=== PATIENT | female | born 1970 | race American Indian/Alaskan Native ===

== ENCOUNTER 2016-08-18 23:00 | Emergency (ER) | payer MEDICARE ==
[2016-08-18 23:59] LABS: Eosinophils % (Auto) 0.3 % (0.0-4.3); Hemoglobin 12.6 gm/dl (10.1-14.3); Mean Corpuscular HGB Conc 32 % (30-34); Mean Corpuscular Hemoglobin 29 pg (28-32); Mean Corpuscular Volume 89 fl (79-97); Platelet Count 341 K/mm3 (140-440); Red Blood Count 4.38 M/mm3 (3.65-5.03); Red Cell Distribution Width 15.4 % (13.2-15.2); White Blood Count 10.6 K/mm3 (4.5-11.0)
[2016-08-19 00:18] LABS: Anion Gap 22 mmol/L; Blood Urea Nitrogen 20 mg/dL (7-17); Calcium 9.2 mg/dL (8.4-10.2); Carbon Dioxide 22 mmol/L (22-30); Chloride 86.6 mmol/L (98-107); Potassium 3.6 mmol/L (3.6-5.0); Sodium 127 mmol/L (137-145)
[2016-08-19 00:21] LABS: Glucose 543 mg/dL (65-100)
[2016-08-19] MEDS ORDERED: NACL 0.9% 1000 ML 1,000 ML IV ONE ×2 (02:31)
--- NOTE | 2016-08-19 02:32 | Emergency Department Report ---
ED General Adult HPI - General Chief complaint: Hyperglycemia Stated complaint: STEROID DIABEATES HIGH Time Seen by Provider: 08/19/16 02:30 Source: patient, old records reviewed Mode of arrival: Ambulatory Limitations: No Limitations - History of Present Illness Initial comments: This is a 45-year-old female. She is previously unknown to me. She has a past medical history of hidradenitis suppurativa. She has been on chronic steroid therapy for the past month. She is sent to the ER by her descriptive catalog librarian for evaluation of hyperglycemia, polydipsia, polyuria. She has no fevers or chills. She has no chest pain or shortness of breath. She has chronic left- sided axillary pain consistent with her chronic hidradenitis. She reports that she is not . She has no dysuria, or painful urination. She's been on steroids for approximately 4 weeks, and her descriptive catalog librarian is tapering her currently. -: Gradual Severity scale (0 -10): 3 Consistency: constant Improves with: none Worsens with: medication Associated Symptoms: denies: confusion, chest pain, cough, diaphoresis, fever/ chills, headaches, loss of appetite, malaise, nausea/vomiting, rash, seizure, shortness of breath, syncope, weakness - Related Data Home Medications Medication Instructions Recorded Confirmed Last Taken Gildess 1 mg-20 Mcg Tablet 1 tab PO DAILY 11/17/14 11/09/15 04/21/15 08:00 Previous Rx's Medication Instructions Recorded Last Taken Type glipiZIDE [Glucotrol] 5 mg PO QAM #30 tablet 05/23/15 Unknown Rx EPINEPHrine [Epipen 2-Edu] 0.3 mg IJ ONCE #2 auto.injct 11/09/15 Unknown Rx predniSONE [Deltasone] 40 mg PO QDAY #10 tab 11/09/15 Unknown Rx Ibuprofen [Motrin] 600 mg PO Q8H PRN #25 tablet 04/06/16 Unknown Rx Acetaminophen/Codeine [Tylenol #3] 1 tab PO Q6H PRN #15 tab 08/02/16 Unknown Rx Clindamycin [Clindamycin CAP] 300 mg PO Q8H #30 cap 08/02/16 Unknown Rx Allergies Allergy/AdvReac Type Severity Reaction Status Date / Time sulfamethoxazole Allergy Hives Verified 09/16/15 00:54 [From Bactrim] trimethoprim [From Bactrim] Allergy Hives Verified 09/16/15 00:54 ED Review of Systems ROS: Stated complaint: STEROID DIABEATES HIGH Other details as noted in HPI Constitutional: denies: fever, malaise Eyes: denies: vision change ENT: denies: epistaxis Respiratory: denies: cough Cardiovascular: denies: chest pain Endocrine: increased hunger, increased urine Gastrointestinal: denies: nausea, vomiting Genitourinary: denies: dysuria Musculoskeletal: myalgia Skin: lesions Neurological: denies: headache, weakness ED Past Medical Hx - Past Medical History Hx Diabetes: Yes (STEROID INDUCED) Hx Arthritis: Yes (Inflammatory) Additional medical history: hidradenitis, depression, Arthritis, "eye arthritis " - Surgical History Additional Surgical History: skin grafts, Tonsilectomy - Social History Smoking Status: Never Smoker Substance Use Type: None - Medications Home Medications: Home Medications Medication Instructions Recorded Confirmed Last Taken Type Gildess 1 mg-20 Mcg Tablet 1 tab PO DAILY 11/17/14 11/09/15 04/21/15 08:00 History glipiZIDE [Glucotrol] 5 mg PO QAM #30 tablet 05/23/15 11/09/15 Unknown Rx EPINEPHrine [Epipen 2-Edu] 0.3 mg IJ ONCE #2 auto.injct 11/09/15 Unknown Rx predniSONE [Deltasone] 40 mg PO QDAY #10 tab 11/09/15 Unknown Rx Ibuprofen [Motrin] 600 mg PO Q8H PRN #25 tablet 04/06/16 Unknown Rx Acetaminophen/Codeine [Tylenol #3] 1 tab PO Q6H PRN #15 tab 08/02/16 Unknown Rx Clindamycin [Clindamycin CAP] 300 mg PO Q8H #30 cap 08/02/16 Unknown Rx ED Physical Exam - General Limitations: No Limitations General appearance: alert, in no apparent distress - Head Head exam: Present: atraumatic, normocephalic - Eye Eye exam: Present: normal appearance, EOMI. Absent: nystagmus - ENT ENT exam: Present: normal exam, normal orophraynx, mucous membranes moist - Neck Neck exam: Present: normal inspection, full ROM. Absent: tenderness, meningismus - Respiratory Respiratory exam: Present: normal lung sounds bilaterally. Absent: respiratory distress, wheezes, rales, rhonchi, stridor, decreased breath sounds - Cardiovascular Cardiovascular Exam: Present: regular rate, normal rhythm, normal heart sounds. Absent: bradycardia, tachycardia, irregular rhythm, systolic murmur, diastolic murmur, rubs, gallop - GI/Abdominal GI/Abdominal exam: Present: soft, normal bowel sounds. Absent: distended, tenderness, guarding, rebound, rigid, pulsatile mass - Extremities Exam Extremities exam: Present: full ROM, normal capillary refill, other (chronic lesions noted in the left axilla, no acute redness, pus, streaking or cellulitis.). Absent: pedal edema, joint swelling, calf tenderness - Back Exam Back exam: Present: normal inspection, full ROM. Absent: tenderness, CVA tenderness (R), CVA tenderness (L), muscle spasm, paraspinal tenderness, vertebral tenderness - Neurological Exam Neurological exam: Present: alert, oriented X3, normal gait, other (Extraocular movements intact. Tongue midline. No facial droop. Facial sensation intact to light touch in the V1, V2, V3 distribution bilaterally. 5 and 5 strength in 4 extremities.. Sensation is intact to light touch in 4 extremities.). Absent : motor sensory deficit - Psychiatric Psychiatric exam: Present: normal affect, normal mood - Skin Skin exam: Present: warm, dry, intact, normal color. Absent: rash ED Course Vital Signs 08/18/16 23:22 Temperature 98.3 F Pulse Rate 88 Respiratory 18 Rate Blood Pressure 133/102 Blood Pressure 133/102 [Right] O2 Sat by Pulse 98 Oximetry - Reevaluation(s) Reevaluation #1: 08/19/16 04:17 Differential diagnosis: Steroid-induced hyperglycemia, diabetic ketoacidosis, hyperosmolar state, hyperglycemic state, chronic hidradenitis, pseudohyponatremia Assessment and plan: 45-year-old female with probable steroid-induced hyperglycemia. Also has a component of mild pseudohyponatremia. Has chronic left-sided axillary pain. Laboratory studies reviewed, patient does not meet criteria for diabetic ketoacidosis. She was given IV fluids, IV insulin, IV pain medication. Her fingerstick decreased nicely, she is resting comfortably, listening to music on her cellular phone and headphones. She does not require admission at this time. She is instructed to follow-up with her outpatient descriptive catalog librarian and primary care doctor for further management of her hidradenitis and chronic steroid therapy. She reports that her descriptive catalog librarian has her on a steroid taper currently, therefore I will defer to her descriptive catalog librarian's preference for her further outpatient management. ED Medical Decision Making - Lab Data Result diagrams: 08/18/16 23:43 08/18/16 23:43 Vital Signs 08/18/16 23:22 Temperature 98.3 F Pulse Rate 88 Respiratory 18 Rate Blood Pressure 133/102 Blood Pressure 133/102 [Right] O2 Sat by Pulse 98 Oximetry Lab Results 08/18/16 08/18/16 08/18/16 Range/Units 23:14 23:43 23:43 WBC 10.6 (4.5-11.0) K/mm3 RBC 4.38 (3.65-5.03) M/mm3 Hgb 12.6 (10.1-14.3) gm/dl Hct 39.0 (30.3-42.9) % MCV 89 (79-97) fl MCH 29 (28-32) pg MCHC 32 (30-34) % RDW 15.4 H (13.2-15.2) % Plt Count 341 (140-440) K/mm3 Lymph % (Auto) 37.1 H (13.4-35.0) % Hanson % (Auto) 7.1 (0.0-7.3) % Eos % (Auto) 0.3 (0.0-4.3) % Baso % (Auto) 1.0 (0.0-1.8) % Lymph # 3.9 (1.2-5.4) K/mm3 Hanson # 0.8 (0.0-0.8) K/mm3 Eos # 0.0 (0.0-0.4) K/mm3 Baso # 0.1 (0.0-0.1) K/mm3 Seg Neutrophils % 54.5 (40.0-70.0) % Seg Neutrophils # 5.7 (1.8-7.7) K/mm3 VBG pH (7.320-7.420) Sodium 127 L (137-145) mmol/L Potassium 3.6 (3.6-5.0) mmol/L Chloride 86.6 L (98-107) mmol/L Carbon Dioxide 22 (22-30) mmol/L Anion Gap 22 mmol/L BUN 20 H (7-17) mg/dL Creatinine 0.8 (0.7-1.2) mg/dL Estimated GFR > 60 ml/min BUN/Creatinine Ratio 25.00 % Glucose 543 H* (65-100) mg/dL POC Glucose 499 H (70-105) Calcium 9.2 (8.4-10.2) mg/dL Urine Bilirubin (Negative) Urine RBC (Auto) (0.0-6.0) /HPF U Epithel Cells (Auto) (0-13.0) /HPF Ketones (-0.28) mmol/L 08/18/16 08/19/16 08/19/16 Range/Units 23:43 03:30 04:10 WBC (4.5-11.0) K/mm3 RBC (3.65-5.03) M/mm3 Hgb (10.1-14.3) gm/dl Hct (30.3-42.9) % MCV (79-97) fl MCH (28-32) pg MCHC (30-34) % RDW (13.2-15.2) % Plt Count (140-440) K/mm3 Lymph % (Auto) (13.4-35.0) % Hanson % (Auto) (0.0-7.3) % Eos % (Auto) (0.0-4.3) % Baso % (Auto) (0.0-1.8) % Lymph # (1.2-5.4) K/mm3 Hanson # (0.0-0.8) K/mm3 Eos # (0.0-0.4) K/mm3 Baso # (0.0-0.1) K/mm3 Seg Neutrophils % (40.0-70.0) % Seg Neutrophils # (1.8-7.7) K/mm3 VBG pH 7.471 H (7.320-7.420) Sodium (137-145) mmol/L Potassium (3.6-5.0) mmol/L Chloride (98-107) mmol/L Carbon Dioxide (22-30) mmol/L Anion Gap mmol/L BUN (7-17) mg/dL Creatinine (0.7-1.2) mg/dL Estimated GFR ml/min BUN/Creatinine Ratio % Glucose (65-100) mg/dL POC Glucose 255 H (70-105) Calcium (8.4-10.2) mg/dL Urine Bilirubin Neg (Negative) Urine RBC (Auto) 3.0 (0.0-6.0) /HPF U Epithel Cells (Auto) 2.0 (0-13.0) /HPF Ketones (-0.28) mmol/L Critical care attestation.: If time is entered above; I have spent that time in minutes in the direct care of this critically ill patient, excluding procedure time. ED Disposition Clinical Impression: Hyperglycemia Disposition: DISCHARGED TO HOME OR SELFCARE Is pt being admited?: No Does the pt Need Aspirin: No Condition: Stable Additional Instructions: Into new current outpatient medications. Follow up with your descriptive catalog librarian specialist or primary care doctor within the next week for further evaluation and management of the hidradenitis and hyperglycemia/borderline diabetes. Return to the ER right away with new pain, worsened pain, migration of pain, fevers or chills, nausea or vomiting, inability to tolerate liquid feeds. Referrals: PRIMARY CARE, [Primary Care Provider] - 3-5 Days
[2016-08-19] MEDS ORDERED: TORADOL IV ONE (03:13)
[2016-08-19 04:13] LABS: Bilirubin,Urine NEG (Negative); Blood,Urine SM (Negative); Ketones,Urine NEG (Negative); Leukocyte Esterase,Urine NEG (Negative); Nitrite,Urine NEG (Negative); Protein,Urine <15 mg/dL mg/dL (Negative); Urobilinogen,Urine < 2.0 mg/dL (<2.0)
[2016-08-19 04:20] VITALS: BP 109/66
[2016-08-24 07:41] LABS: B-Hydroxybutyrate 0.2 mmol/L (0.2 - 0.28)
== END 2016-08-19 04:34 | disposition home or self-care (01) ==
LOC: ED 23:00
DX: E11.65 Type 2 diabetes mellitus with hyperglycemia (principal); M19.90 Unspecified osteoarthritis, unspecified site; F32.9 Major depressive disorder, single episode, unspecified; Z88.2 Allergy status to sulfonamides; Z88.8 Allergy status to other drugs, medicaments and biological substances
CPT/HCPCS: 36415; 80048; 81001; 82010; 82805; 82962; 85025; 96361; 96374; 96375; 99284; J1885; J7030

== ENCOUNTER 2016-09-05 22:09 | Emergency (ER) | payer MEDICARE ==
[2016-09-06] MEDS ORDERED: TORADOL IM ONE (04:01)
--- NOTE | 2016-09-06 04:33 | Emergency Department Report ---
ED Recheck HPI - General Chief Complaint: Skin/Abscess/Foreign Body Stated Complaint: BOILS Time Seen by Provider: 09/06/16 03:27 Source: patient Mode of arrival: Ambulatory Limitations: No Limitations - History of Present Illness Initial Comments: 45-year-old female presents to emergency room with the chronic hidradenitis abscesses. Patient has hidradenitis for many years and currently under treatment by apprentice. Tonight she presents to emergency room requesting pain medicine shot. She denies any other complaints. Patient is seen here in the emergency room multiple times in the past with similar complaints. Complaint: medication refill request, other -: Gradual (years) Initial Visit For: abscess Returns Today for: request for prescription, other (requesting pain medicine shot) Symptoms Since Prior Visit: no new symptoms Context: ran out of medication Associated Symptoms: none - Related Data Home Medications Medication Instructions Recorded Confirmed Last Taken Gildess 1 mg-20 Mcg Tablet 1 tab PO DAILY 11/17/14 11/09/15 04/21/15 08:00 Previous Rx's Medication Instructions Recorded Last Taken Type glipiZIDE [Glucotrol] 5 mg PO QAM #30 tablet 05/23/15 Unknown Rx EPINEPHrine [Epipen 2-Edu] 0.3 mg IJ ONCE #2 auto.injct 11/09/15 Unknown Rx predniSONE [Deltasone] 40 mg PO QDAY #10 tab 11/09/15 Unknown Rx Ibuprofen [Motrin] 600 mg PO Q8H PRN #25 tablet 04/06/16 Unknown Rx Acetaminophen/Codeine [Tylenol #3] 1 tab PO Q6H PRN #15 tab 08/02/16 Unknown Rx Clindamycin [Clindamycin CAP] 300 mg PO Q8H #30 cap 08/02/16 Unknown Rx Clindamycin [Clindamycin CAP] 300 mg PO Q8H #30 cap 09/06/16 Unknown Rx Diclofenac Sodium 75 mg PO BID #20 tablet. 09/06/16 Unknown Rx Allergies Allergy/AdvReac Type Severity Reaction Status Date / Time sulfamethoxazole Allergy Hives Verified 09/16/15 00:54 [From Bactrim] trimethoprim [From Bactrim] Allergy Hives Verified 09/16/15 00:54 ED Review of Systems ROS: Stated complaint: BOILS Other details as noted in HPI Comment: All other systems reviewed and negative Constitutional: denies: chills, fever Eyes: denies: eye pain, eye discharge, vision change ENT: denies: ear pain, throat pain Respiratory: denies: cough, shortness of breath, wheezing Cardiovascular: denies: chest pain, palpitations Endocrine: no symptoms reported Gastrointestinal: denies: abdominal pain, nausea, diarrhea Genitourinary: denies: urgency, dysuria, discharge Musculoskeletal: denies: back pain, joint swelling, arthralgia Skin: as per HPI, rash, lesions Neurological: denies: headache, weakness, paresthesias Psychiatric: denies: anxiety, depression Hematological/Lymphatic: denies: easy bleeding, easy bruising ED Past Medical Hx - Past Medical History Previous Medical History?: Yes Hx Diabetes: Yes (STEROID INDUCED) Hx Arthritis: Yes (Inflammatory) Additional medical history: hidradenitis, depression, Arthritis, "eye arthritis " - Surgical History Past Surgical History?: Yes Additional Surgical History: skin grafts, Tonsilectomy - Social History Smoking Status: Never Smoker Substance Use Type: None - Medications Home Medications: Home Medications Medication Instructions Recorded Confirmed Last Taken Type Gildess 1 mg-20 Mcg Tablet 1 tab PO DAILY 11/17/14 11/09/15 04/21/15 08:00 History glipiZIDE [Glucotrol] 5 mg PO QAM #30 tablet 05/23/15 11/09/15 Unknown Rx EPINEPHrine [Epipen 2-Edu] 0.3 mg IJ ONCE #2 auto.injct 11/09/15 Unknown Rx predniSONE [Deltasone] 40 mg PO QDAY #10 tab 11/09/15 Unknown Rx Ibuprofen [Motrin] 600 mg PO Q8H PRN #25 tablet 04/06/16 Unknown Rx Acetaminophen/Codeine [Tylenol #3] 1 tab PO Q6H PRN #15 tab 08/02/16 Unknown Rx Clindamycin [Clindamycin CAP] 300 mg PO Q8H #30 cap 08/02/16 Unknown Rx Clindamycin [Clindamycin CAP] 300 mg PO Q8H #30 cap 09/06/16 Unknown Rx Diclofenac Sodium 75 mg PO BID #20 tablet. 09/06/16 Unknown Rx ED Physical Exam - General Limitations: No Limitations General appearance: alert, in no apparent distress - Head Head exam: Present: atraumatic, normocephalic - Eye Eye exam: Present: normal appearance - ENT ENT exam: Present: mucous membranes moist - Neck Neck exam: Present: normal inspection - Respiratory Respiratory exam: Present: normal lung sounds bilaterally. Absent: respiratory distress - Cardiovascular Cardiovascular Exam: Present: regular rate, normal rhythm. Absent: systolic murmur, diastolic murmur, rubs, gallop - GI/Abdominal GI/Abdominal exam: Present: soft, normal bowel sounds - Extremities Exam Extremities exam: Present: normal inspection - Back Exam Back exam: Present: normal inspection, full ROM. Absent: tenderness - Neurological Exam Neurological exam: Present: alert, oriented X3, CN II-XII intact, normal gait, motor sensory deficit, reflexes normal - Psychiatric Psychiatric exam: Present: normal affect, normal mood - Skin Skin exam: Present: warm, dry, intact, normal color, rash (multiple abscess to axilla, perianal and perineal area as per patient.) ED Course Vital Signs 09/05/16 22:31 Temperature 98.2 F Pulse Rate 85 Respiratory 18 Rate Blood Pressure 128/82 O2 Sat by Pulse 96 Oximetry Critical care attestation.: If time is entered above; I have spent that time in minutes in the direct care of this critically ill patient, excluding procedure time. ED Disposition Clinical Impression: Chronic pain disorder, Hidradenitis axillaris Disposition: DISCHARGED TO HOME OR SELFCARE Is pt being admited?: No Does the pt Need Aspirin: No Condition: Good Instructions: Wound Infection (ED), Chronic Wound Care (ED) Prescriptions: Clindamycin [Clindamycin CAP] 300 mg PO Q8H #30 cap Diclofenac Sodium 75 mg PO BID #20 tablet. Referrals: PRIMARY CARE, [Primary Care Provider] - 3-5 Days
[2016-09-06 05:13] VITALS: BP 126/84
== END 2016-09-06 05:12 | disposition home or self-care (01) ==
LOC: ED 22:09
DX: L73.2 Hidradenitis suppurativa (principal); G89.29 Other chronic pain; E11.9 Type 2 diabetes mellitus without complications; M19.90 Unspecified osteoarthritis, unspecified site; F32.9 Major depressive disorder, single episode, unspecified; Z90.89 Acquired absence of other organs; Z88.8 Allergy status to other drugs, medicaments and biological substances
CPT/HCPCS: 96372; 99282; J1885

== ENCOUNTER 2017-03-11 16:44 | Emergency (ER) | payer MEDICARE ==
--- NOTE | 2017-03-12 01:14 | Emergency Department Report ---
ED General Adult HPI - General Chief complaint: Pain General Stated complaint: CHORNIC PAIN Time Seen by Provider: 03/12/17 00:42 Source: patient Mode of arrival: Ambulatory Limitations: No Limitations - History of Present Illness Initial comments: Patient is a 46-year-old female past medical history of hydradenitis suppritiva who presents with compliant of "I want my left armpit washed"patient was seen at the [facility] yesterday and she states that she may get any pain medication for hydradenitis. Patient has chronic hydradenitis and has been seen by a power systems engineer for it. She was previously given Remicade but her insurance changed so she wasn't able to fill her Remicade prescription. Patient states that she wants her armpit washed. Patient states that her pain in the axilla is 5 out 10 and aching type pain describes sent raising her arm makes it worse and nothing makes it better. Patient denies having any other symptoms. Patient denies any suicidal or homicidal ideation. Severity scale (0 -10): 10 - Related Data Home Medications Medication Instructions Recorded Confirmed Last Taken Gildess 1 mg-20 Mcg Tablet 1 tab PO DAILY 11/17/14 11/09/15 04/21/15 08:00 Previous Rx's Medication Instructions Recorded Last Taken Type glipiZIDE [Glucotrol] 5 mg PO QAM #30 tablet 05/23/15 Unknown Rx EPINEPHrine [Epipen 2-Edu] 0.3 mg IJ ONCE #2 auto.injct 11/09/15 Unknown Rx predniSONE [Deltasone] 40 mg PO QDAY #10 tab 11/09/15 Unknown Rx Ibuprofen [Motrin] 600 mg PO Q8H PRN #25 tablet 04/06/16 Unknown Rx Acetaminophen/Codeine [Tylenol #3] 1 tab PO Q6H PRN #15 tab 08/02/16 Unknown Rx Clindamycin [Clindamycin CAP] 300 mg PO Q8H #30 cap 08/02/16 Unknown Rx Clindamycin [Clindamycin CAP] 300 mg PO Q8H #30 cap 09/06/16 Unknown Rx Diclofenac Sodium 75 mg PO BID #20 tablet. 09/06/16 Unknown Rx Allergies Allergy/AdvReac Type Severity Reaction Status Date / Time sulfamethoxazole Allergy Hives Verified 09/16/15 00:54 [From Bactrim] trimethoprim [From Bactrim] Allergy Hives Verified 09/16/15 00:54 ED Review of Systems ROS: Stated complaint: CHORNIC PAIN Other details as noted in HPI Constitutional: denies: chills, fever Eyes: denies: eye pain, eye discharge, vision change ENT: denies: ear pain, throat pain Respiratory: denies: cough, shortness of breath, wheezing Cardiovascular: denies: chest pain, palpitations Endocrine: no symptoms reported Gastrointestinal: denies: abdominal pain, nausea, diarrhea Genitourinary: denies: urgency, dysuria, discharge Musculoskeletal: denies: back pain, joint swelling, arthralgia Skin: as per HPI. denies: rash, lesions Neurological: denies: headache, weakness, paresthesias Psychiatric: denies: anxiety, depression Hematological/Lymphatic: denies: easy bleeding, easy bruising ED Past Medical Hx - Past Medical History Previous Medical History?: Yes Hx Diabetes: Yes (STEROID INDUCED) Hx Arthritis: Yes (Inflammatory) Additional medical history: hidradenitis, depression, Arthritis, "eye arthritis " - Surgical History Past Surgical History?: Yes Additional Surgical History: skin grafts, Tonsilectomy - Social History Smoking Status: Never Smoker Substance Use Type: Prescribed - Medications Home Medications: Home Medications Medication Instructions Recorded Confirmed Last Taken Type Gildess 1 mg-20 Mcg Tablet 1 tab PO DAILY 11/17/14 11/09/15 04/21/15 08:00 History glipiZIDE [Glucotrol] 5 mg PO QAM #30 tablet 05/23/15 11/09/15 Unknown Rx EPINEPHrine [Epipen 2-Edu] 0.3 mg IJ ONCE #2 auto.injct 11/09/15 Unknown Rx predniSONE [Deltasone] 40 mg PO QDAY #10 tab 11/09/15 Unknown Rx Ibuprofen [Motrin] 600 mg PO Q8H PRN #25 tablet 04/06/16 Unknown Rx Acetaminophen/Codeine [Tylenol #3] 1 tab PO Q6H PRN #15 tab 08/02/16 Unknown Rx Clindamycin [Clindamycin CAP] 300 mg PO Q8H #30 cap 08/02/16 Unknown Rx Clindamycin [Clindamycin CAP] 300 mg PO Q8H #30 cap 09/06/16 Unknown Rx Diclofenac Sodium 75 mg PO BID #20 tablet. 09/06/16 Unknown Rx ED Physical Exam - General Limitations: No Limitations General appearance: alert, in no apparent distress - Head Head exam: Present: atraumatic, normocephalic - Eye Eye exam: Present: normal appearance - ENT ENT exam: Present: mucous membranes moist - Neck Neck exam: Present: normal inspection - Respiratory Respiratory exam: Present: normal lung sounds bilaterally. Absent: respiratory distress - Cardiovascular Cardiovascular Exam: Present: regular rate, normal rhythm. Absent: systolic murmur, diastolic murmur, rubs, gallop - GI/Abdominal GI/Abdominal exam: Present: soft, normal bowel sounds - Extremities Exam Extremities exam: Present: normal inspection - Back Exam Back exam: Present: normal inspection - Neurological Exam Neurological exam: Present: alert, oriented X3 - Psychiatric Psychiatric exam: Present: normal affect, normal mood - Skin Skin exam: Present: other (chronic hydradenitis left axilla pus draining from her wound no cellulitis no). Absent: rash ED Course Vital Signs 03/11/17 03/11/17 17:16 21:35 Temperature 98.5 F 98.4 F Pulse Rate 119 H 91 H Respiratory 22 18 Rate Blood Pressure 148/95 144/94 O2 Sat by Pulse 100 99 Oximetry ED Medical Decision Making - Medical Decision Making Chief Medical diagnosis: Chronic hydradenitis supprativa Differential medical diagnosis: Drug-seeking behavior, malingering I will give the patient oral Tylenol, oral Motrin, oral tramadol and oral gabapentin for her chronic pain. I Will not give her any Caroline or any Percocet Patient is requesting her wounds be washed discussed the patient will not be getting any narcotic pain medication the ER. Patient became upset and states that she just wants a mirror to look at her arm.. I'll attempt to find a mirror for patient to look at her wound. Discussed the patient will need to go with her primary care provider. I'll send patient home. Critical care attestation.: If time is entered above; I have spent that time in minutes in the direct care of this critically ill patient, excluding procedure time. ED Disposition Clinical Impression: Hidradenitis suppurativa Pain in axilla Qualifiers: Laterality: left Qualified Code(s): M79.622 - Pain in left upper arm Disposition: - TO HOME OR SELFCARE Is pt being admited?: No Does the pt Need Aspirin: No Condition: Stable Instructions: Chronic Pain (ED) Referrals: PRIMARY CARE,MD [Primary Care Provider] - 3-5 Days
[2017-03-12] MEDS: MOTRIN PO ONE (03:33)
[2017-03-12] MEDS: TYLENOL PO ONE (03:34)
[2017-03-12] MEDS: ULTRAM PO ONE (03:34)
[2017-03-12] MEDS: NEURONTIN PO ONE (03:35)
[2017-03-12 04:52] VITALS: BP 113/75
== END 2017-03-12 04:00 | disposition home or self-care (01) ==
LOC: ED 16:44
DX: L73.2 Hidradenitis suppurativa (principal); M79.621 Pain in right upper arm; E11.9 Type 2 diabetes mellitus without complications; M19.90 Unspecified osteoarthritis, unspecified site; Z88.2 Allergy status to sulfonamides
CPT/HCPCS: 99282

== ENCOUNTER 2018-12-04 10:09 | Outpatient (CLI) | payer MEDICARE ==
--- NOTE | 2018-12-04 13:44 | Mammography Report ---
BILATERAL DIGITAL SCREENING MAMMOGRAM WITH CAD INDICATION: Routine screening mammography. TECHNIQUE: Digital bilateral 2D mammography was obtained in the craniocaudal and mediolateral obliq ue projections. This examination was interpreted with the benefit of Computer-Aided Detection analysi s. COMPARISON: 02/07/2016 FINDINGS: Breast Density: The breasts are heterogeneously dense, which may obscure small masses. There is no evidence of mass, suspicious calcifications or architectural distortion in either breast . IMPRESSION: No mammographic evidence of malignancy. BI-RADS Category 1: Negative. No mammographic evidence of malignancy. Recommend routine screening m ammography in one year. A "normal" or negative report should not discourage follow up or biopsy of a clinically significant f inding. A written summary of these findings will be mailed to the patient. The patient will be entered into a mammography reporting system which will generate a reminder letter for the patient's next appointmen t at the appropriate interval. The [employer] recommends yearly mammograms starting at age 40 and continuing as l mukund as a woman is in good health. Breast MRI is recommended for women with an approximate 20-25% or greater lifetime risk of breast cancer, including women with a strong family history of breast or ova jovan cancer or who have been treated for Hodgkin's disease. Signer Name: Jaquan Mora MD Signed: 12/04/2018 1:39 PM Workstation Name: [id number]
== END 2018-12-04 10:10 | disposition home or self-care (01) ==
LOC: MAMMO 10:09
PROVIDERS: ATTEND Obstetrics & Gynecology
DX: Z12.31 Encounter for screening mammogram for malignant neoplasm of breast (principal)
CPT/HCPCS: 77067

== ENCOUNTER 2019-06-03 13:31 | Emergency (ER) | payer MEDICARE ==
--- NOTE | 2019-06-03 14:23 | Emergency Department Report ---
Blank Doc - Documentation Documentation: 48 Y/O FEMALE WITH NEW ONSET SEIZURES AND CURRENTLY BEING TREATED FOR HIDRADIN ITIS C/O OF DIZZINESS, NAUSEA AND HYPOTENSION. NON PRODUCTIVE COUGH. SHE WAS AT HER INFECTIOUS DISEASE DOCTOR WHEN BP WAS DISCOVERED AND WAS ADVISED TO COME TO THE ED FOR FURTHER TREATMENT AND RECOMMENDATION. ON CLINDAMYCIN AND REMICADE FEELS THE WOUND IS IMPROVING. The patient was seen in triage for ABOVE Labs/imaging ordered to evaluate for a cause of this complaint. Vital signs reviewed, patient awake and alert in NAD.
--- NOTE | 2019-06-03 14:59 | XRay Report ---
CHEST 2 VIEWS INDICATION / CLINICAL INFORMATION: Weakness. COMPARISON: None available. FINDINGS: SUPPORT DEVICES: None. HEART / MEDIASTINUM: No significant abnormality. LUNGS / PLEURA: No significant pulmonary or pleural abnormality. No pneumothorax. ADDITIONAL FINDINGS: No significant additional findings. IMPRESSION: 1. No acute findings. Signer Name: Kalen Duvall MD Signed: 06/03/2019 2:55 PM Workstation Name: [id number]
[2019-06-03 16:01] LABS: Hematocrit 38.1 % (30.3-42.9); Hemoglobin 12.6 gm/dl (10.1-14.3); Mean Corpuscular HGB Conc 33 % (30-34); Mean Corpuscular Volume 88 fl (79-97); Platelet Count 204 K/mm3 (140-440); Red Blood Count 4.32 M/mm3 (3.65-5.03); Red Cell Distribution Width 15.7 % (13.2-15.2)
[2019-06-03 16:25] LABS: Alanine Aminotransferase 33 units/L (7-56); Albumin 3.7 g/dL (3.9-5); BUN/Creatinine Ratio 16; Blood Urea Nitrogen 18 mg/dL (7-17); Calcium 8.5 mg/dL (8.4-10.2); Hemolysis Index 7
[2019-06-03 18:10] LABS: Basophils % (Manual) 0 % (0.0-1.8); Eosinophils % (Manual) 0 % (0.0-4.3); Total Cells Counted 100
[2019-06-03 18:11] LABS: Anisocytosis Few; Platelet Estimate Consistent w Auto
[2019-06-03] MEDS ORDERED: SODIUM CHLORIDE 0.9% 1000 ML 1,000 ML IV ONE (18:19)
[2019-06-03] MEDS ORDERED: ONDANSETRON 4 MG/2 ML INJ IV ONE (18:19)
[2019-06-03] MEDS ORDERED: LORazepam 2 MG/ML VIAL IV ONE (18:56)
--- NOTE | 2019-06-03 18:57 | Emergency Department Report ---
HPI - General Chief Complaint: Weakness Time Seen by Provider: 06/03/19 14:19 - HPI HPI: 48-year-old female presents to the emergency department with the complaint of "I feel terrible." She was sent in here from the office of her infectious disease physician, Dr. live, for whom she sees regarding her hidradenitis. While she was there she had a low blood pressure and was sent in for further evaluation. The patient had some seizure-like activity back in August while at [place] and was placed on Keppra. She has been following with a neurologist, Dr. Julien, who has kept her on the Keppra. The patient says that she feels bad when she takes this medication and says that it causes her to feel like "my head is swimming." Patient also says that she has been having a 5 day history of a "stomach virus." She has been having some nausea, vomiting, diarrhea, chills and sweats. She has not taken anything for her symptoms prior to presentation. The patient's primary care physician is Dr. Kearns. No recent travel or sick contacts at home. ED Past Medical Hx - Past Medical History Previous Medical History?: Yes Hx Diabetes: Yes (STEROID INDUCED) Hx Arthritis: Yes (Inflammatory) Additional medical history: hidradenitis, depression, Arthritis, "eye arthritis" - Surgical History Past Surgical History?: Yes Additional Surgical History: skin grafts, Tonsilectomy - Social History Smoking Status: Never Smoker Substance Use Type: None - Medications Home Medications: Home Medications Medication Instructions Recorded Confirmed Last Taken Type Gildess 1 mg-20 Mcg Tablet 1 tab PO DAILY 11/17/14 11/09/15 04/21/15 08:00 History glipiZIDE [Glucotrol] 5 mg PO QAM #30 tablet 05/23/15 11/09/15 Unknown Rx EPINEPHrine [Epipen 2-Edu] 0.3 mg IJ ONCE #2 auto.injct 11/09/15 Unknown Rx predniSONE [Deltasone] 40 mg PO QDAY #10 tab 11/09/15 Unknown Rx Ibuprofen [Motrin] 600 mg PO Q8H PRN #25 tablet 04/06/16 Unknown Rx Acetaminophen/Codeine [Tylenol #3] 1 tab PO Q6H PRN #15 tab 08/02/16 Unknown Rx Clindamycin [Clindamycin CAP] 300 mg PO Q8H #30 cap 08/02/16 Unknown Rx Clindamycin [Clindamycin CAP] 300 mg PO Q8H #30 cap 09/06/16 Unknown Rx Diclofenac Sodium 75 mg PO BID #20 tablet. 09/06/16 Unknown Rx Metoclopramide [Reglan] 10 mg PO TID PRN #15 tab 06/04/19 Unknown Rx Ondansetron [Zofran Odt] 4 mg PO Q8HR PRN #15 tab.rapdis 06/04/19 Unknown Rx ED Review of Systems ROS: Stated complaint: LOW BLOOD PRESSURE Other details as noted in HPI Comment: All other systems reviewed and negative Constitutional: chills, diaphoresis Eyes: denies: eye pain, vision change ENT: denies: ear pain, throat pain Respiratory: denies: cough, shortness of breath Cardiovascular: denies: chest pain, palpitations Gastrointestinal: abdominal pain, nausea, vomiting, diarrhea Genitourinary: denies: dysuria, discharge Musculoskeletal: denies: back pain, arthralgia Skin: denies: rash, lesions Neurological: other (dizziness). denies: headache, numbness, paresthesias Physical Exam - Physical Exam Vital Signs: Vital Signs 06/03/19 06/03/19 06/03/19 14:20 18:05 18:07 Temperature 97.6 F Pulse Rate 68 62 Respiratory 16 16 Rate Blood Pressure 97/60 149/99 Blood Pressure 149/99 [Left] O2 Sat by Pulse 100 100 100 Oximetry 06/03/19 18:15 Temperature Pulse Rate Respiratory Rate Blood Pressure 139/83 Blood Pressure [Left] O2 Sat by Pulse 100 Oximetry Physical Exam: GENERAL: The patient is well-developed well-nourished. HEENT: Normocephalic. Atraumatic. Patient has moist mucous membranes. EYES: Extraocular motions are intact. NECK: Supple. Trachea is midline CHEST/LUNGS: Clear to auscultation. There is no respiratory distress noted. HEART/CARDIOVASCULAR: Regular. There is no tachycardia. ABDOMEN: Abdomen is soft. There is generalized mild tenderness to palpation with upper quadrants greater than lower quadrants. No guarding. Patient has normal bowel sounds. There is no abdominal distention. SKIN: Skin is warm and dry. NEURO: The patient is awake, alert, and oriented. The patient is cooperative. The patient has no focal neurologic deficits. Normal speech. MUSCULOSKELETAL: There is no tenderness or deformity. There is no limitation range of motion. There is no evidence of acute injury. ED Course Vital Signs 06/03/19 06/03/19 06/03/19 14:20 18:05 18:07 Temperature 97.6 F Pulse Rate 68 62 Respiratory 16 16 Rate Blood Pressure 97/60 149/99 Blood Pressure 149/99 [Left] O2 Sat by Pulse 100 100 100 Oximetry 06/03/19 18:15 Temperature Pulse Rate Respiratory Rate Blood Pressure 139/83 Blood Pressure [Left] O2 Sat by Pulse 100 Oximetry ED Medical Decision Making - Lab Data Result diagrams: 06/03/19 15:43 06/03/19 15:43 - EKG Data -: EKG Interpreted by Me EKG shows normal: sinus rhythm, axis, intervals, QRS complexes, ST-T waves (nonspecific T waves) Rate: normal - EKG Data When compared to previous EKG there are: previous EKG unavailable Interpretation: other (nonspecific T waves) - Radiology Data Radiology results: report reviewed, image reviewed interpreted by me: Chest x-ray does not show any pneumonia, pneumothorax, focal consolidation, pleural effusions, or any other acute process. Abdominal x-ray shows nonspecific nonobstructive bowel gas ULTRASOUND ABDOMEN, LIMITED (RIGHT UPPER QUADRANT), 03/03/2020 INDICATION: Right upper quadrant pain. COMPARISON: Abdominal radiograph, 06/03/2019 FINDINGS: Pancreas: Visualized portion shows no significant abnormality. Liver: The liver is markedly enlarged measuring 20 cm in greatest craniocaudal dimension. Gallbladder: The gallbladder appears normal without sludge or stones. Bile ducts: Common Bile Duct is normal in caliber measuring less than 2 mm Free fluid: None. Additional Findings: None. IMPRESSION: 1. Marked hepatomegaly. - Medical Decision Making This patient presents to the emergency department after she was found to have some hypotension at the office of her infectious disease physician. She's been having a 5 day history of some nausea, vomiting, abdominal discomfort that she believes is a "stomach virus." Patient's labs are mostly unremarkable except for some mild dehydration. A chest x-ray was done that does not show any acute process. Abdominal x-ray shows nonspecific nonobstructive bowel gas. An abdomi nal ultrasound shows hepatomegaly. Patient received some Zofran for nausea and some IV fluid resuscitation. She was reevaluated multiple times with multiple hours and says that she is feeling improved. She has been able to keep down some water and Gatorade while in the emergency department. For all these reasons the patient appears safe for discharge home at this time. She has good follow-up with Dr. Kearns. She'll be given a referral for gastroenterology regarding her issues with nausea and vomiting, and her nonspecific abdominal pains. She will return to the emergency Department with any worsening of her symptoms, inability to stay hydrated, or with any acute distress. - Differential Diagnosis food poisoning, gastroenteritis, colitis, cholelithiasis, cholecystitis Critical Care Time: No Critical care attestation.: If time is entered above; I have spent that time in minutes in the direct care of this critically ill patient, excluding procedure time. ED Disposition Clinical Impression: Dehydration, Hepatomegaly Nausea & vomiting Qualifiers: Vomiting type: unspecified Vomiting Intractability: non-intractable Qualified Code(s): R11.2 - Nausea with vomiting, unspecified Abdominal pain Qualifiers: Abdominal location: unspecified location Qualified Code(s): R10.9 - Unspecified abdominal pain Disposition: TO HOME OR SELFCARE Is pt being admited?: No Condition: Stable Instructions: Dehydration (ED), Acute Nausea and Vomiting (ED), Abdominal Pain (ED) Additional Instructions: Increase your oral rehydration. Please follow-up with your primary care physician in the next few days. I have given you a referral for a local gastroenterology group to follow up regarding your abdominal pains, nausea and vomiting. Return to the emergency Department with any worsening of your symptoms or any acute distress. Prescriptions: Metoclopramide [Reglan] 10 mg PO TID PRN #15 tab PRN Reason: Nausea Ondansetron [Zofran Odt] 4 mg PO Q8HR PRN #15 tab.rapdis PRN Reason: Nausea Referrals: TALIB KEARNS JR, MD [Primary Care Provider] - 3-5 Days [facility] [Provider Group] - 3-5 Days Time of Disposition: 00:31
--- NOTE | 2019-06-03 19:42 | XRay Report ---
FLAT AND UPRIGHT VIEWS OF THE ABDOMEN INDICATION: MAIN: Abd pain; pt c/o low blood pressure from infectious disease for Hidradenitis suppurativa, pt al so c/o dizziness, weakness d/t Keppra medication. BP 87/58.. COMPARISON: No relevant prior imaging study available. FINDINGS: There is mild gaseous distention of the colon. No dilated loops of small bowel are seen. No free air is identified. There are numerous phleboliths in the pelvis. IMPRESSION: 1. No radiographic evidence of acute abdomen. 2. Liver is enlarged. Signer Name: Bhavik Sutherland MD Signed: 06/03/2019 7:38 PM Workstation Name: [id number]
[2019-06-03 19:44] LABS: Bacteria,Urine 1+ /HPF (Negative); Bilirubin,Urine NEG (Negative); Blood,Urine LG (Negative); Color,Urine Yellow (Yellow); Hyaline Casts,Urine 1 /LPF; Mucus,Urine FEW /HPF; Urobilinogen,Urine < 2.0 mg/dL (<2.0)
--- NOTE | 2019-06-04 00:09 | Ultrasound Report ---
ULTRASOUND ABDOMEN, LIMITED (RIGHT UPPER QUADRANT), 03/03/2020 INDICATION: Right upper quadrant pain. COMPARISON: Abdominal radiograph, 06/03/2019 FINDINGS: Pancreas: Visualized portion shows no significant abnormality. Liver: The liver is markedly enlarged measuring 20 cm in greatest craniocaudal dimension. Gallbladder: The gallbladder appears normal without sludge or stones. Bile ducts: Common Bile Duct is normal in caliber measuring less than 2 mm Free fluid: None. Additional Findings: None. IMPRESSION: 1. Marked hepatomegaly. Signer Name: Esthela Peter MD Signed: 06/04/2019 12:05 AM Workstation Name: [id number]
[2019-06-04 01:34] VITALS: BP 113/72
== END 2019-06-04 00:50 | disposition home or self-care (01) ==
LOC: ED 13:31
DX: E86.0 Dehydration (principal); R10.9 Unspecified abdominal pain; R16.0 Hepatomegaly, not elsewhere classified; E11.9 Type 2 diabetes mellitus without complications; M19.90 Unspecified osteoarthritis, unspecified site; Z90.89 Acquired absence of other organs; Z79.899 Other long term (current) drug therapy; Z88.2 Allergy status to sulfonamides
CPT/HCPCS: 36415; 71046; 74019; 76705; 80053; 81001; 83690; 84443; 84484; 85007; 85025; 93005; 93010; 96361; 96374; 96375; 99284; J2060; J2405; J7030

== ENCOUNTER 2020-06-05 21:23 | Emergency (ER) | payer MEDICARE ==
[2020-06-05 22:10] VITALS: BP 121/75
--- NOTE | 2020-06-06 00:37 | Emergency Department Report ---
Chief Complaint: Medical Clearance Stated Complaint: GENERAL ILLNESS - HPI History of Present Illness: 49-year-old -[place] female presents to the emergency room stating that she has an appointment with Dr. Olguin. Patient states that she knows that he does not see patient on the weekend and was planning to stay here until Sunday. Patient is seen by airplane patrol pilot and her primary care provider. Patient states that she was coming to see Dr. Olguin for him to discontinue her medications. Patient reports that she was recently seen at [place]. - Exam Vital Signs: Vital Signs 06/05/20 21:56 Temperature 98.1 F Pulse Rate 101 H Respiratory 16 Rate Blood Pressure 121/75 O2 Sat by Pulse 99 Oximetry Physical Exam: Alert and oriented x3 no acute distress nontoxic in appearance No accessory muscles use nonlabored breathing Ambulatory without difficulties. She is pushing a walker with several bags. MSE screening note: Focused history and physical exam performed. Due to findings the following was ordered: 49-year-old -[place] female presents to the emergency room stating that she has an appointment with Dr. Olguin. Patient states that she knows that he do es not see patient on the weekend and was planning to stay here until Sunday. Patient is seen by airplane patrol pilot and her primary care provider. Patient states that she was coming to see Dr. Olguin for him to discontinue her medications. Patient reports that she was recently seen at [place]. Discussed patient she can follow-up with Dr. Olguin on Sunday as well as make an appointment with her airplane patrol pilot. [place] [facility] [place]: MED SCREENING EXAM-LEFT Is pt being admited?: No Does the pt Need Aspirin: No Condition: Stable Additional Instructions: Please follow-up with your primary care provider or your airplane patrol pilot. Referrals: DILMA JUSTICE MD [Primary Care Provider] - 3-5 Days EYAD OLGUIN MD [Staff Physician] - 3-5 Days
== END 2020-06-06 00:41 | disposition left against medical advice (07) ==
LOC: ED 21:23
DX: R69 Illness, unspecified (principal); Z53.21 Procedure and treatment not carried out due to patient leaving prior to being seen by health care provider

== ENCOUNTER 2020-06-17 18:04 | Emergency (ER) | payer MEDICARE ==
[2020-06-17 18:11] VITALS: BP 119/78
== END 2020-06-17 18:41 | disposition left against medical advice (07) ==
LOC: ED 18:04
DX: R41.3 Other amnesia (principal); Z53.21 Procedure and treatment not carried out due to patient leaving prior to being seen by health care provider

== ENCOUNTER 2020-11-15 12:52 | Emergency (ER) | payer MEDICARE ==
--- NOTE | 2020-11-15 15:01 | Event Note ---
ED Screening Note Date of service: 11/15/20 Time: 14:58 ED Screening Note: 50-year-old female returns to the ER with complaints that she still not feeling better after she was seen in discharge from the ER this morning. Patient states that she has been feeling dizzy, lightheaded, she has been having episodes of nausea and vomiting she has had a headache, generalized body aches and just feeling generally weak. Patient is also homeless. Past medical history significant for seizure disorders, diabetes, hypertension, and VT in 2019. She is not currently on any anticoagulants. This initial assessment/diagnostic orders/clinical plan/treatment(s) is/are subject to change based on patients health status, clinical progression and re- assessment by fellow clinical providers in the ED. Further treatment and workup at subsequent clinical providers discretion. Patient/guardian urged not to elope from the ED as their condition may be serious if not clinically assessed and managed. Initial orders include: labs
[2020-11-15 16:02] LABS: Hematocrit 40.4 % (30.3-42.9); Hemoglobin 12.9 gm/dl (10.1-14.3); Mean Corpuscular HGB Conc 32 % (30-34); Mean Corpuscular Volume 87 fl (79-97); Red Blood Count 4.64 M/mm3 (3.65-5.03); Red Cell Distribution Width 16.7 % (13.2-15.2)
[2020-11-15 16:04] LABS: Platelet Count 230 K/mm3 (140-440)
[2020-11-15 16:35] LABS: Alanine Aminotransferase 7 units/L (7-56); Albumin 4.5 g/dL (3.9-5); BUN/Creatinine Ratio 12; Blood Urea Nitrogen 11 mg/dL (7-17); Calcium 9.5 mg/dL (8.4-10.2); Hemolysis Index 82
[2020-11-15 16:40] LABS: Total Cells Counted 100
[2020-11-15 17:00] LABS: Anisocytosis 1+; Burr Cells 1+; Poikilocytosis 1+
[2020-11-15 17:01] LABS: Ovalocytes Few; Platelet Estimate Consistent w Auto
[2020-11-15 18:09] LABS: Bilirubin,Urine NEG (Negative); Blood,Urine NEG (Negative); Calcium Oxalate Crystals,Urine 2+; Color,Urine Yellow (Yellow); Mucus,Urine 1+ /HPF; Protein,Urine <15 mg/dL mg/dL (Negative); Urobilinogen,Urine < 2.0 mg/dL (<2.0)
[2020-11-15] MEDS ORDERED: METOCLOPRAMIDE 10 MG TAB PO ONE (20:05)
[2020-11-15] MEDS ORDERED: ACETAMINOPHEN 325 MG TAB PO ONE (20:05)
--- NOTE | 2020-11-15 20:07 | Emergency Department Report ---
ED General Adult HPI - General Chief complaint: Dizziness Stated complaint: DIZZINESS, LIGHT HEADEDNESS, BODY ACHES PUI?: Yes Time Seen by Provider: 11/15/20 19:40 Source: patient, RN notes reviewed, old records reviewed Mode of arrival: Ambulatory Limitations: No Limitations - History of Present Illness Initial comments: The patient was evaluated in the emergency department for symptoms described in the history of present illness. He/she was evaluated in the context of the global COVID-19 pandemic, which necessitated consideration that the patient might be at risk for infection with the virus that causes COVID-19. [facility] t[facility] protocols and algorithms that pertain to the evaluation of patients at risk for COVID-19 are in a state of rapid change based on information released by regulatory bodies including the CDC and federal and state organizations. These policies and algorithms were followed during the patient's care in the emergency department. Please note that these policies, procedures and recommendations changed on a rapid basis. In the entire history and physical examination, I had on complete personal protective equipment. The patient is a 50-year-old female. She is not known to myself previously. She reports a history of arthritis, and is currently on Remicade infusion. She also reports a history of arthritis, and diabetes, and hidradenitis. The patient was seen in this hospital/emergency room earlier on today, for generalized weakness, malaise, fatigue, lightheadedness, and a number of other nonspecific symptoms. She was found to have an unremarkable physical examination, unremarkable laboratory studies, with exception of mildly decreased glucose, and unremarkable x-ray the chest, and noncontrast CT scan of the brain. She was thus discharged. The patient stated that she is homeless, and she has no place to go. She indicated that she would like to be admitted to the hospital for generalized weakness. She complains of persistent dizziness/weakness, generalized malaise, fatigue, generalized body aches/arthralgias, denies loss of taste and smell, and has not received the Covid vaccination. She specifically indicated to the triage nurse that she would like to be admitte d and that she has no place to go. When I asked the patient if she came here because she is homeless, she would not answer the question. She reports that she is nauseous. She has not vomited since she has been here in the emergency room. The patient states her symptoms are all over, increased with palpation and range of motion, and decreased with rest. She has not taken any [id number] analgesia at this time. -: Gradual, days(s) Location: back, left, right, upper extremity, lower extremity Quality: aching Consistency: constant Improves with: rest Worsens with: movement - Related Data Home Medications Medication Instructions Recorded Confirmed Last Taken Gabapentin [Neurontin] 300 mg PO Q8HR 11/15/20 11/15/20 Unknown Potassium Gluconate [Potassium] 600 mg PO DAILY 11/15/20 11/15/20 Unknown Topiramate [Topamax] 25 mg PO DAILY 11/15/20 11/15/20 Unknown carvediloL [Coreg] 3.125 mg PO BID 11/15/20 11/15/20 Unknown inFLIXimab (NF) [Remicade (Nf)] 10 mg IV Q4W 11/15/20 11/15/20 Unknown levETIRAcetam [Keppra TAB] 500 mg PO BID 11/15/20 11/15/20 Unknown Allergies Allergy/AdvReac Type Severity Reaction Status Date / Time sulfamethoxazole Allergy Hives Verified 11/14/20 23:20 [From Bactrim] trimethoprim [From Bactrim] Allergy Hives Verified 11/14/20 23:20 ED Review of Systems ROS: Stated complaint: DIZZINESS, LIGHT HEADEDNESS, BODY ACHES Other details as noted in HPI Constitutional: malaise, weakness, other (Denies loss of taste and smell). denies: fever Eyes: denies: eye discharge Respiratory: denies: cough Cardiovascular: denies: chest pain Gastrointestinal: nausea. denies: abdominal pain Genitourinary: denies: dysuria Musculoskeletal: back pain, arthralgia, myalgia Neurological: weakness Psychiatric: anxiety ED Past Medical Hx - Past Medical History Previous Medical History?: Yes Hx Diabetes: Yes (STEROID INDUCED) Hx Arthritis: Yes (Inflammatory) Additional medical history: hidradenitis, depression, Arthritis, "eye arthritis" - Surgical History Past Surgical History?: Yes Additional Surgical History: skin grafts, Tonsilectomy - Social History Smoking Status: Never Smoker Substance Use Type: None - Medications Home Medications: Home Medications Medication Instructions Recorded Confirmed Last Taken Type Gabapentin [Neurontin] 300 mg PO Q8HR 11/15/20 11/15/20 Unknown History Potassium Gluconate [Potassium] 600 mg PO DAILY 11/15/20 11/15/20 Unknown History Topiramate [Topamax] 25 mg PO DAILY 11/15/20 11/15/20 Unknown History carvediloL [Coreg] 3.125 mg PO BID 11/15/20 11/15/20 Unknown History inFLIXimab (NF) [Remicade (Nf)] 10 mg IV Q4W 11/15/20 11/15/20 Unknown History levETIRAcetam [Keppra TAB] 500 mg PO BID 11/15/20 11/15/20 Unknown History ED Physical Exam - General Limitations: No Limitations General appearance: alert, anxious - Head Head exam: Present: atraumatic, normocephalic - Eye Eye exam: Present: normal appearance, PERRL, EOMI. Absent: nystagmus - ENT ENT exam: Present: normal exam, normal orophraynx, mucous membranes moist, normal external ear exam - Neck Neck exam: Present: normal inspection, full ROM. Absent: tenderness, meningismus - Respiratory Respiratory exam: Present: normal lung sounds bilaterally. Absent: respiratory distress, wheezes, rales, rhonchi, stridor, decreased breath sounds - Cardiovascular Cardiovascular Exam: Present: normal rhythm, bradycardia, normal heart sounds. Absent: tachycardia, irregular rhythm, systolic murmur, diastolic murmur, rubs, gallop - GI/Abdominal GI/Abdominal exam: Present: soft. Absent: distended, tenderness, guarding, rebound, rigid, pulsatile mass - Extremities Exam Extremities exam: Present: normal inspection, full ROM, other (2+ pulses noted in the bilateral upper and lower extremities. There is no palpable cord. negative Homans sign. Muscular compartments are soft. The pelvis is stable.). Absent: pedal edema, calf tenderness - Back Exam Back exam: Present: normal inspection, paraspinal tenderness. Absent: CVA tenderness (R), CVA tenderness (L) - Neurological Exam Neurological exam: Present: alert, oriented X3, normal gait, other (No facial droop. Tongue midline. Extraocular movements intact bilaterally. Facial sensation intact to light touch in V1, V2, V3 distribution bilaterally. 5 and a 5 strength in 4 extremities. Sensation intact to light touch in 4 extremities.). Absent: motor sensory deficit - Psychiatric Psychiatric exam: Present: anxious - Skin Skin exam: Present: warm, dry, intact, normal color. Absent: rash ED Course Vital Signs 11/15/20 11/15/20 11/15/20 13:35 20:00 20:30 Temperature 98.4 F Pulse Rate 58 L 66 60 Respiratory 16 16 10 L Rate Blood Pressure Blood Pressure 152/94 [Right] O2 Sat by Pulse 97 100 100 Oximetry 11/15/20 21:00 Temperature Pulse Rate 71 Respiratory 18 Rate Blood Pressure 124/76 Blood Pressure [Right] O2 Sat by Pulse 100 Oximetry - Reevaluation(s) Reevaluation #1: 11/15/20 20:57 Differential diagnosis, including but not limited to: Homelessness, encounter for medical screening examination, polyarthritis, polymyalgias, malnutrition COVID-19 Assessment and plan: 50-year-old female with persistent complaint of weakness, myalgias, homelessnes s, unremarkable vital signs, unremarkable physical examination, noted by nursing team to be ambulating with a steady gait with her walker, 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 She specifically told us that she does not take any oral hypoglycemic medication. Nursing team to feed patient, repeat Accu-Chek, and if improved, discharged with outpatient follow-up. Have not witnessed any active vomiting over here. Unfortunately, suspect that patient is presenting for the purposes of secondary gain. COVID-19 is possible, however, given unremarkable vital signs, lack of hypoxia, unremarkable physical exam, supportive care is indicated at this time. Chest x- ray was clear within the past 24 hours. 11/15/20 21:01 11/15/20 21:02 During the entire history and physical examination, I am chaperoned by nurse Michelle Almaguer 11/15/20 22:05 Patient in the meal without difficulty. Repeat Accu-Chek 129. Vital signs unremarkable. Suitable for discharge with outpatient follow-up. Vital Signs 11/15/20 11/15/20 11/15/20 13:35 20:00 20:30 Temperature 98.4 F Pulse Rate 58 L 66 60 Respiratory 16 16 10 L Rate Blood Pressure Blood Pressure 152/94 [Right] O2 Sat by Pulse 97 100 100 Oximetry 11/15/20 21:00 Temperature Pulse Rate 71 Respiratory 18 Rate Blood Pressure 124/76 Blood Pressure [Right] O2 Sat by Pulse 100 Oximetry ED Medical Decision Making - Lab Data Result diagrams: 11/15/20 15:32 11/15/20 15:32 Vital Signs 11/15/20 13:35 Temperature 98.4 F Pulse Rate 58 L Respiratory 16 Rate Blood Pressure 152/94 [Right] O2 Sat by Pulse 97 Oximetry Lab Results 11/15/20 11/15/20 11/15/20 Range/Units 15:32 15:32 15:32 WBC 6.1 (4.5-11.0) K/mm3 RBC 4.64 (3.65-5.03) M/mm3 Hgb 12.9 (10.1-14.3) gm/dl Hct 40.4 (30.3-42.9) % MCV 87 (79-97) fl MCH 28 (28-32) pg MCHC 32 (30-34) % RDW 16.7 H (13.2-15.2) % Plt Count 230 (140-440) K/mm3 Lymph % (Auto) Physician General Internal Medicine Add Manual Diff Complete Total Counted 100 Seg Neutrophils % Physician General Internal Medicine Seg Neuts % (Manual) 25.0 L (40.0-70.0) % Lymphocytes % (Manual) 73.0 H (13.4-35.0) % Monocytes % (Manual) 2.0 (0.0-7.3) % Nucleated RBC % Not Reportable Seg Neutrophils # Man 1.5 L (1.8-7.7) K/mm3 Band Neutrophils # 0.0 K/mm3 Lymphocytes # (Manual) 4.5 (1.2-5.4) K/mm3 Abs React Lymphs (Man) 0.0 K/mm3 Monocytes # (Manual) 0.1 (0.0-0.8) K/mm3 Eosinophils # (Manual) 0.0 (0.0-0.4) K/mm3 Basophils # (Manual) 0.0 (0.0-0.1) K/mm3 Metamyelocytes # 0.0 K/mm3 Myelocytes # 0.0 K/mm3 Promyelocytes # 0.0 K/mm3 Blast Cells # 0.0 K/mm3 WBC Morphology Not Reportable Hypersegmented Neuts Not Reportable Hyposegmented Neuts Not Reportable Hypogranular Neuts Not Reportable Smudge Cells Not Reportable Toxic Granulation Not Reportable Toxic Vacuolation Not Reportable Dohle Bodies Not Reportable Pelger-Huet Anomaly Not Reportable Jose Rods Not Reportable Platelet Estimate Consistent w auto Clumped Platelets Not Reportable Plt Clumps, EDTA Not Reportable Large Platelets Not Reportable Giant Platelets Not Reportable Platelet Satelliting Not Reportable Plt Morphology Comment Not Reportable RBC Morphology Not Reportable Dimorphic RBCs Not Reportable Polychromasia Not Reportable Hypochromasia Not Reportable Poikilocytosis 1+ Anisocytosis 1+ Microcytosis Not Reportable Macrocytosis Not Reportable Spherocytes Not Reportable Pappenheimer Bodies Not Reportable Sickle Cells Not Reportable Target Cells Not Reportable Tear Drop Cells Not Reportable Ovalocytes Few Helmet Cells Not Reportable [place] Bodies Not Reportable [place] Rings Not Reportable [place] Cells 1+ Bite Cells Not Reportable Crenated Cell Not Reportable Elliptocytes Not Reportable Acanthocytes (Spur) Not Reportable Rouleaux Not Reportable Hemoglobin C Crystals Not Reportable Schistocytes Not Reportable Malaria parasites Not Reportable [place] Bodies Not Reportable Hem Pathologist Commnt No Sodium 136 L (137-145) mmol/L Potassium 4.1 (3.6-5.0) mmol/L Chloride 98.4 (98-107) mmol/L Carbon Dioxide 21 L (22-30) mmol/L Anion Gap 21 mmol/L BUN 11 (7-17) mg/dL Creatinine 0.9 (0.6-1.2) mg/dL Estimated GFR > 60 ml/min BUN/Creatinine Ratio 12 % Glucose 61 L (65-100) mg/dL Calcium 9.5 (8.4-10.2) mg/dL Magnesium 2.00 (1.7-2.3) mg/dL Total Bilirubin 0.40 (0.1-1.2) mg/dL AST 17 (5-40) units/L ALT 7 (7-56) units/L Alkaline Phosphatase 76 (35-129) units/L Total Creatine Kinase (30-135) units/L Troponin T < 0.010 (0.00-0.029) ng/mL Total Protein 8.7 H (6.3-8.2) g/dL Albumin 4.5 (3.9-5) g/dL Albumin/Globulin Ratio 1.1 % Urine Color (Yellow) Urine Turbidity (Clear) Urine pH (5.0-7.0) Ur Specific [place] (1.003-1.030) Urine Protein (Negative) mg/dL Urine Glucose (UA) (Negative) mg/dL Urine Ketones (Negative) mg/dL Urine Blood (Negative) Urine Nitrite (Negative) Urine Bilirubin (Negative) Urine Urobilinogen (<2.0) mg/dL Ur Leukocyte Esterase (Negative) Urine WBC (Auto) (0.0-6.0) /HPF Urine RBC (Auto) (0.0-6.0) /HPF U Epithel Cells (Auto) (0-13.0) /HPF Calcium Oxalate Crystal Urine Mucus /HPF 11/15/20 11/15/20 Range/Units 17:45 20:05 WBC (4.5-11.0) K/mm3 RBC (3.65-5.03) M/mm3 Hgb (10.1-14.3) gm/dl Hct (30.3-42.9) % MCV (79-97) fl MCH (28-32) pg MCHC (30-34) % RDW (13.2-15.2) % Plt Count (140-440) K/mm3 Lymph % (Auto) Add Manual Diff Total Counted Seg Neutrophils % Seg Neuts % (Manual) (40.0-70.0) % Lymphocytes % (Manual) (13.4-35.0) % Monocytes % (Manual) (0.0-7.3) % Nucleated RBC % Seg Neutrophils # Man (1.8-7.7) K/mm3 Band Neutrophils # K/mm3 Lymphocytes # (Manual) (1.2-5.4) K/mm3 Abs React Lymphs (Man) K/mm3 Monocytes # (Manual) (0.0-0.8) K/mm3 Eosinophils # (Manual) (0.0-0.4) K/mm3 Basophils # (Manual) (0.0-0.1) K/mm3 Metamyelocytes # K/mm3 Myelocytes # K/mm3 Promyelocytes # K/mm3 Blast Cells # K/mm3 WBC Morphology Hypersegmented Neuts Hyposegmented Neuts Hypogranular Neuts Smudge Cells Toxic Granulation Toxic Vacuolation Dohle Bodies Pelger-Huet Anomaly Jose Rods Platelet Estimate Clumped Platelets Plt Clumps, EDTA Large Platelets Giant Platelets Platelet Satelliting Plt Morphology Comment RBC Morphology Dimorphic RBCs Polychromasia Hypochromasia Poikilocytosis Anisocytosis Microcytosis Macrocytosis Spherocytes Pappenheimer Bodies Sickle Cells Target Cells Tear Drop Cells Ovalocytes Helmet Cells [place] Bodies [place] Rings [place] Cells Bite Cells Crenated Cell Elliptocytes Acanthocytes (Spur) Rouleaux Hemoglobin C Crystals Schistocytes Malaria parasites Maynor Bodies Hem Pathologist Commnt Sodium (137-145) mmol/L Potassium (3.6-5.0) mmol/L Chloride (98-107) mmol/L Carbon Dioxide (22-30) mmol/L Anion Gap mmol/L BUN (7-17) mg/dL Creatinine (0.6-1.2) mg/dL Estimated GFR ml/min BUN/Creatinine Ratio % Glucose (65-100) mg/dL Calcium (8.4-10.2) mg/dL Magnesium (1.7-2.3) mg/dL Total Bilirubin (0.1-1.2) mg/dL AST (5-40) units/L ALT (7-56) units/L Alkaline Phosphatase (35-129) units/L Total Creatine Kinase 76 (30-135) units/L Troponin T (0.00-0.029) ng/mL Total Protein (6.3-8.2) g/dL Albumin (3.9-5) g/dL Albumin/Globulin Ratio % Urine Color Yellow (Yellow) Urine Turbidity Clear (Clear) Urine pH 5.0 (5.0-7.0) Ur Specific [place] 1.019 (1.003-1.030) Urine Protein <15 mg/dl (Negative) mg/dL Urine Glucose (UA) Neg (Negative) mg/dL Urine Ketones Neg (Negative) mg/dL Urine Blood Neg (Negative) Urine Nitrite Neg (Negative) Urine Bilirubin Neg (Negative) Urine Urobilinogen < 2.0 (<2.0) mg/dL Ur Leukocyte Esterase Neg (Negative) Urine WBC (Auto) 5.0 (0.0-6.0) /HPF Urine RBC (Auto) 4.0 (0.0-6.0) /HPF U Epithel Cells (Auto) < 1.0 (0-13.0) /HPF Calcium Oxalate Crystal 2+ Urine Mucus 1+ /HPF - EKG Data -: EKG Interpreted by Me EKG shows normal: sinus rhythm - EKG Data When compared to previous EKG there are: no significant change Interpretation: unchanged when compared t 11/15/20 20:56 EKG is interpreted at 15: 21 Sinus rhythm, rate 65 bpm. Normal axis, normal intervals, left ventricular hypertrophy, motion artifact, not a STEMI, unchanged from prior EKG from May 2019 - Radiology Data Radiology results: report reviewed, image reviewed CHEST 1 VIEW 11/15/2020 2:38 AM INDICATION / CLINICAL INFORMATION: cough. COMPARISON: None available. FINDINGS: SUPPORT DEVICES: None. HEART / MEDIASTINUM: No significant abnormality. LUNGS / PLEURA: No significant pulmonary or pleural abnormality. No pneumothorax. ADDITIONAL FINDINGS: No significant additional findings. IMPRESSION: 1. No acute findings. Signer Name: Kaden Ansari MD Signed: 11/15/2020 2:43 AM Workstation Name: [id number] CT HEAD WITHOUT CONTRAST INDICATION / CLINICAL INFORMATION: hEADACHE. TECHNIQUE: All CT scans at this location are performed using CT dose reduction for ALARA by means of automated exposure control. COMPARISON: None available. FINDINGS: No acute intracranial hemorrhage. Ventricles appear normal in size without midline shift or mass effect. No extra-axial fluid collection is seen. Minimal ethmoid sinus disease ADDITIONAL FINDINGS: None. IMPRESSION: 1. No acute intracranial abnormality. Signer Name: Kaden Ansari MD Signed: 11/15/2020 3:59 AM Workstation Name: [email or web address] Critical care attestation.: If time is entered above; I have spent that time in minutes in the direct care of this critically ill patient, excluding procedure time. ED Disposition Clinical Impression: Body aches, Encounter for medical screening examination, Homelessness Disposition: DC-01 TO HOME OR SELFCARE Is pt being admited?: No Does the pt Need Aspirin: No Condition: Good Instructions: COVID-19, Acute Pain, Adult Additional Instructions: As we discussed, the patient may have novel coronavirus/COVID. the symptoms of COVID will typically persist 10 to 14 days. There is no cure at this time for COVID. Please make certain to self isolate and self quarantine, follow-up with an outpatient primary care doctor within the next 3 to 5 days, wash hands with soap and water frequently, thoroughly and often, patient may take the prescribed medications as needed and directed. Advance diet and drink plenty of fluids as tolerated. Avoid interactions with the very elderly, very young, and those with chronic medical conditions. Return to the emergency room right away with new pain, worsening pain, migration of pain, projectile vomiting, change in mental status, confusion, inability to tolerate liquid feeds, new, worsened or different symptoms not present on the initial emergency room evaluation. Patient may take [id number] Tylenol/acetaminophen as needed for physical pain. Patient may use the prescribed nausea medicines that were prescribed for her yesterday. For the patient's convenience, she will be presented with a list of primary care doctors, as well as local outpatient homeless shelters. Referrals: KENNA KIM MD [Staff Physician] - 3-5 Days [facility] [Provider Group] - 3-5 Days
[2020-11-15 21:22] VITALS: BP 124/76
--- NOTE | 2020-11-17 19:11 | Electrocardiograph Report ---
[facility] Test Date: 2020-11-15 Test Time: 15:17:54 Pat Name: FAY GREEN Department: Room: Gender: F Card Room Manager: FRANCY : 1970 Requested By: JAYANT INFANTE Order Number: [id number] Reading MD: Orquidea Elizalde Measurements Intervals [place] Rate: 65 P: 35 NE: 67 QRS: 69 QRSD: 99 T: 81 QT: 407 QTc: 422 Interpretive Statements Sinus rhythm Compared to ECG 11/15/2020 03:47:54 No significant changes Electronically Signed On 11-17-2020 19:10:58 EDT by Orquidea Elizalde
== END 2020-11-15 23:47 | disposition home or self-care (01) ==
LOC: ED 12:52
DX: R53.81 Other malaise (principal); M79.10 Myalgia, unspecified site; R42 Dizziness and giddiness; R53.1 Weakness; Z59.0 Homelessness; Z00.00 Encounter for general adult medical examination without abnormal findings; E11.9 Type 2 diabetes mellitus without complications; M19.91 Primary osteoarthritis, unspecified site; Z90.89 Acquired absence of other organs; Z98.890 Other specified postprocedural states; Z79.899 Other long term (current) drug therapy; Z88.8 Allergy status to other drugs, medicaments and biological substances
CPT/HCPCS: 36415; 70450; 71045; 80053; 81001; 82550; 82962; 83735; 84443; 84484; 85007; 85025; 93005; Q0162

== ENCOUNTER 2020-12-05 08:53 | Emergency (ER) | payer MEDICARE ==
[2020-12-05] MEDS ORDERED: SODIUM CHLORIDE 0.9% 1000 ML 1,000 ML IV ONE ×2 (09:44→09:55)
[2020-12-05] MEDS ORDERED: diphenhydrAMINE 50 MG/ML VIAL IV ONE (09:44)
[2020-12-05] MEDS ORDERED: METOCLOPRAMIDE 10 MG/2 ML INJ IV ONE (09:44)
--- NOTE | 2020-12-05 09:51 | Emergency Department Report ---
ED Headache HPI - General Chief Complaint: Headache Stated Complaint: ITCHY EYES, LIGHT HEADED, DIZZY, VOMITING Time Seen by Provider: 12/05/20 09:09 Source: patient, RN notes reviewed Exam Limitations: no limitations - History of Present Illness Initial Comments: This is a 50-year-old female nontoxic, well nourished in appearance, no acute signs of distress presents to the ED with c/o of dizziness, acute on chronic headache with nausea vomiting and some generalized weakness x several days. Patient stated since having seizures 2 years ago started to have headaches. Patient stated headache has worsened and the past several days is not relieved with [id number]-[id number] medications. Patient describes headache as diffuse with level of 8 out of 10. Patient denies thunderclap headache. Patient denies any radiation of pain. Patient denies any head trauma. Patient denies any visual changes. Patient denies worse headache. Patient stated that darkness makes headache better and bright lights make the headache worse. Patient denies any numbness, tingling, fever, chills, nausea, vomiting, chest pain, shortness of breath, stiff neck. Patient denies facial drooping or one sided weakness. Patient denies any radiation of pain. Patient stated allergies to Bactrim. Sagar clayton medical history includes migraine headaches. Timing/Duration: episodic Quality: moderate Head Injury Location: other (diffuse) Recent Head Trauma: occasional headaches Associated Symptoms: nausea/vomiting, weakness, other (dizziness). denies: confusion, fatigue, facial pain, fever/chills, flushing, loss of consciousness, nasal congestion, nasal drainage, numbness in legs/feet, rash, seizures, sinus infection, stiff neck, vision changes Allergies/Adverse Reactions: Allergies sulfamethoxazole [From Bactrim] Allergy (Verified 12/05/20 08:55) Hives trimethoprim [From Bactrim] Allergy (Verified 12/05/20 08:55) Hives Home Medications: Ambulatory Orders Gabapentin [Neurontin] 300 mg PO Q8HR 11/15/20 Potassium Gluconate [Potassium] 600 mg PO DAILY 11/15/20 Topiramate [Topamax] 25 mg PO DAILY 11/15/20 carvediloL [Coreg] 3.125 mg PO BID 11/15/20 inFLIXimab (NF) [Remicade (Nf)] 10 mg IV Q4W 11/15/20 levETIRAcetam [Keppra TAB] 500 mg PO BID 11/15/20 Butalb/Acetaminophen/Caffeine [Fioricet 50-300-40 mg CAP] 1 cap PO Q8HR PRN #12 cap 12/05/20 ED Review of Systems ROS: Stated complaint: ITCHY EYES, LIGHT HEADED, DIZZY, VOMITING Other details as noted in HPI Comment: All other systems reviewed and negative Constitutional: denies: chills, fever Eyes: denies: eye pain, eye discharge, vision change ENT: denies: ear pain, throat pain Respiratory: denies: cough, shortness of breath, wheezing Cardiovascular: denies: chest pain, palpitations Endocrine: no symptoms reported Gastrointestinal: nausea, vomiting. denies: abdominal pain, diarrhea, constipation, hematemesis, melena, hematochezia Genitourinary: denies: urgency, dysuria, discharge Musculoskeletal: denies: back pain, joint swelling, arthralgia Skin: denies: rash, lesions Neurological: headache, weakness. denies: numbness, paresthesias, confusion, abnormal gait, vertigo Psychiatric: denies: anxiety, depression Hematological/Lymphatic: denies: easy bleeding, easy bruising ED Past Medical Hx - Past Medical History Hx Diabetes: Yes (STEROID INDUCED) Hx Arthritis: Yes (Inflammatory) Hx Seizures: Yes Additional medical history: hidradenitis, depression, Arthritis, "eye arthritis" - Surgical History Additional Surgical History: skin grafts, Tonsilectomy - Social History Smoking Status: Current Every Day Smoker Substance Use Type: None - Medications Home Medications: Home Medications Medication Instructions Recorded Confirmed Last Taken Type Gabapentin [Neurontin] 300 mg PO Q8HR 11/15/20 11/15/20 Unknown History Potassium Gluconate [Potassium] 600 mg PO DAILY 11/15/20 11/15/20 Unknown History Topiramate [Topamax] 25 mg PO DAILY 11/15/20 11/15/20 Unknown History carvediloL [Coreg] 3.125 mg PO BID 11/15/20 11/15/20 Unknown History inFLIXimab (NF) [Remicade (Nf)] 10 mg IV Q4W 11/15/20 11/15/20 Unknown History levETIRAcetam [Keppra TAB] 500 mg PO BID 11/15/20 11/15/20 Unknown History Butalb/Acetaminophen/Caffeine 1 cap PO Q8HR PRN #12 cap 12/05/20 Unknown Rx [Fioricet 50-300-40 mg CAP] ED Physical Exam - General Limitations: No Limitations General appearance: alert, in no apparent distress - Head Head exam: Present: atraumatic, normocephalic - Eye Eye exam: Present: normal appearance, PERRL, EOMI - ENT ENT exam: Present: normal exam, normal orophraynx - Neck Neck exam: Present: normal inspection, full ROM. Absent: tenderness, meningismus, lymphadenopathy - Respiratory Respiratory exam: Present: normal lung sounds bilaterally. Absent: respiratory distress, wheezes, rales, rhonchi, stridor, chest wall tenderness, accessory muscle use, decreased breath sounds, prolonged expiratory - Cardiovascular Cardiovascular Exam: Present: regular rate, normal rhythm, normal heart sounds. Absent: bradycardia, tachycardia, irregular rhythm, systolic murmur, diastolic murmur, rubs, gallop - GI/Abdominal GI/Abdominal exam: Present: soft, normal bowel sounds. Absent: distended, tenderness, guarding, rebound, rigid, diminished bowel sounds - Extremities Exam Extremities exam: Present: normal inspection, full ROM - Back Exam Back exam: Present: normal inspection, full ROM. Absent: tenderness, CVA tenderness (R), CVA tenderness (L), muscle spasm, paraspinal tenderness, v ertebral tenderness, rash noted - Neurological Exam Neurological exam: Present: alert, oriented X3, normal gait - Expanded Neurological Exam Expanded Patient oriented to: Present: person, place, time Cranial nerves: EOM's Intact: Normal, Facial Sensation: Normal Cerebellar function: Finger to Nose: Normal Upper motor neuron: Pronator Drift: Normal, Sensory Extinction: Normal Motor strength exam: RUE: 5, LUE: 5, RLE: 5, LLE: 5 Best Eye Response ([place]): (4) open spontaneously Best Motor Response ([place]): (6) obeys commands Best Verbal Response ([place]): (5) oriented [place] Total: 15 - Psychiatric Psychiatric exam: Present: normal affect, normal mood - Skin Skin exam: Present: warm, dry, intact, normal color. Absent: rash ED Course Vital Signs 12/05/20 12/05/20 12/05/20 08:57 12:46 13:00 Temperature 99.1 F Pulse Rate 97 H 92 H 103 H Respiratory 18 25 H 18 Rate Blood Pressure 108/60 103/61 Blood Pressure 122/70 [Right] O2 Sat by Pulse 100 100 99 Oximetry SEE VITALS TAB FOR ORTHOSTATIC VITAL SIGNS. - Reevaluation(s) Reevaluation #1: 12/05/20 09:51 Patient is speaking in full sentences with no signs of distress noted. - Consultations Consultation #1: 12/05/20 11:34 Patient has been consulted with Dr. Farfan about patient history, physical e xam, and labs and agrees to ED plan of care. ED Medical Decision Making - Lab Data Result diagrams: 12/05/20 10:52 12/05/20 11:29 Lab Results 12/05/20 12/05/20 12/05/20 Range/Units 09:42 10:52 11:29 WBC 11.0 (4.5-11.0) K/mm3 RBC 4.14 (3.65-5.03) M/mm3 Hgb 11.9 (10.1-14.3) gm/dl Hct 35.0 (30.3-42.9) % MCV 84 (79-97) fl MCH 29 (28-32) pg MCHC 34 (30-34) % RDW 16.7 H (13.2-15.2) % Plt Count 230 (140-440) K/mm3 Lymph % (Auto) 8.4 L (13.4-35.0) % [place] % (Auto) 4.5 (0.0-7.3) % Eos % (Auto) 1.2 (0.0-4.3) % Baso % (Auto) 0.4 (0.0-1.8) % Lymph # (Auto) 0.9 L (1.2-5.4) K/mm3 [place] # (Auto) 0.5 (0.0-0.8) K/mm3 Eos # (Auto) 0.1 (0.0-0.4) K/mm3 Baso # (Auto) 0.0 (0.0-0.1) K/mm3 Seg Neutrophils % 85.5 H (40.0-70.0) % Seg Neutrophils # 9.4 H (1.8-7.7) K/mm3 Sodium 129 L 135 L (137-145) mmol/L Potassium 9.9 H* 4.6 D (3.6-5.0) mmol/L Chloride 104.2 108.1 H (98-107) mmol/L Carbon Dioxide 18 L 17 L (22-30) mmol/L Anion Gap 17 15 mmol/L BUN 38 H 38 H (7-17) mg/dL Creatinine 0.9 0.8 (0.6-1.2) mg/dL Estimated GFR > 60 > 60 ml/min BUN/Creatinine Ratio 42 48 % Glucose 98 94 (65-100) mg/dL Calcium 7.9 L 7.9 L (8.4-10.2) mg/dL Magnesium (1.7-2.3) mg/dL Total Bilirubin 0.20 < 0.20 (0.1-1.2) mg/dL AST < 5 L < 5 L (5-40) units/L ALT < 5 L < 5 L (7-56) units/L Alkaline Phosphatase 60 80 (35-129) units/L Troponin T (0.00-0.029) ng/mL Total Protein 7.9 6.8 (6.3-8.2) g/dL Albumin 3.4 L 3.3 L (3.9-5) g/dL Albumin/Globulin Ratio 0.8 0.9 % Urine Color (Yellow) Urine Turbidity (Clear) Urine pH (5.0-7.0) Ur Specific [place] (1.003-1.030) Urine Protein (Negative) mg/dL Urine Glucose (UA) (Negative) mg/dL Urine Ketones (Negative) mg/dL Urine Blood (Negative) Urine Nitrite (Negative) Urine Bilirubin (Negative) Urine Urobilinogen (<2.0) mg/dL Ur Leukocyte Esterase (Negative) Urine WBC (Auto) (0.0-6.0) /HPF Urine RBC (Auto) (0.0-6.0) /HPF U Epithel Cells (Auto) (0-13.0) /HPF 12/05/20 12/05/20 Range/Units 11:29 13:57 WBC (4.5-11.0) K/mm3 RBC (3.65-5.03) M/mm3 Hgb (10.1-14.3) gm/dl Hct (30.3-42.9) % MCV (79-97) fl MCH (28-32) pg MCHC (30-34) % RDW (13.2-15.2) % Plt Count (140-440) K/mm3 Lymph % (Auto) (13.4-35.0) % [place] % (Auto) (0.0-7.3) % Eos % (Auto) (0.0-4.3) % Baso % (Auto) (0.0-1.8) % Lymph # (Auto) (1.2-5.4) K/mm3 [place] # (Auto) (0.0-0.8) K/mm3 Eos # (Auto) (0.0-0.4) K/mm3 Baso # (Auto) (0.0-0.1) K/mm3 Seg Neutrophils % (40.0-70.0) % Seg Neutrophils # (1.8-7.7) K/mm3 Sodium (137-145) mmol/L Potassium (3.6-5.0) mmol/L Chloride (98-107) mmol/L Carbon Dioxide (22-30) mmol/L Anion Gap mmol/L BUN (7-17) mg/dL Creatinine (0.6-1.2) mg/dL Estimated GFR ml/min BUN/Creatinine Ratio % Glucose (65-100) mg/dL Calcium (8.4-10.2) mg/dL Magnesium 1.90 (1.7-2.3) mg/dL Total Bilirubin (0.1-1.2) mg/dL AST (5-40) units/L ALT (7-56) units/L Alkaline Phosphatase (35-129) units/L Troponin T < 0.010 (0.00-0.029) ng/mL Total Protein (6.3-8.2) g/dL Albumin (3.9-5) g/dL Albumin/Globulin Ratio % Urine Color Straw (Yellow) Urine Turbidity Clear (Clear) Urine pH 6.0 (5.0-7.0) Ur Specific [place] 1.012 (1.003-1.030) Urine Protein <15 mg/dl (Negative) mg/dL Urine Glucose (UA) Neg (Negative) mg/dL Urine Ketones Tr (Negative) mg/dL Urine Blood Neg (Negative) Urine Nitrite Neg (Negative) Urine Bilirubin Neg (Negative) Urine Urobilinogen < 2.0 (<2.0) mg/dL Ur Leukocyte Esterase Neg (Negative) Urine WBC (Auto) 1.0 (0.0-6.0) /HPF Urine RBC (Auto) 1.0 (0.0-6.0) /HPF U Epithel Cells (Auto) < 1.0 (0-13.0) /HPF - EKG Data 12/05/20 15:22 Normal sinus rhythm. No STEMI. Review sent by MD. - Radiology Data [address] [address] Cat Scan Report Signed Patient: FAY GREEN MR #: [id number] : 1970 Acct:[id number] Age/Sex: 50 / F ADM Date: 12/05/20 Loc: ED Attending Dr: Ordering Physician: ANTONIO CASTILLO NP Date of Service: 12/05/20 Pr ocedure(s): CT head/brain wo con Accession Number(s): [id number] cc: ANTONIO CASTILLO NP CT HEAD WITHOUT CONTRAST INDICATION / CLINICAL INFORMATION: Headache. History of migraines. TECHNIQUE: All CT scans at this location are performed using CT dose reduction for ALARA by means of automated exposure control. COMPARISON: 11/15/20. FINDINGS: HEMORRHAGE: None. EXTRA-AXIAL SPACES: Normal in size and morphology for the patient's age. VENTRICULAR SYSTEM: Normal in size and morphology for the patient's age. CEREBRAL PARENCHYMA: No significant abnormality. No acute territorial infarct. MIDLINE SHIFT / HERNIATION: None. CEREBELLUM / BRAINSTEM: No significant abnormality. ORBITS: Normal as visualized. SOFT TISSUES: No significant abnormality. SKULL: No significant abnormality. PARANASAL SINUSES / MASTOID AIR CELLS: Normal as visualized. ADDITIONAL FINDINGS: None. IMPRESSION: No acute abnormality or significant change. Signer Name: Blake Nunez MD Signed: 12/05/2020 10:43 AM Workstation Name: [id number] Transcribed By: RT Dictated By: Blake Nunez MD Electronically Authenticated By: Blake Nunez MD Signed Date/Time: 12/05/20 1043 DD/ 1041 TD/TT: [address] [address] XRay Report Signed Patient: FAY GREEN MR #: [id number] : 1970 Acct:[id number] Age/Sex: 50 / F ADM Date: 12/05/20 Loc: ED Attending Dr: Ordering Physician: ANTONIO CASTILLO NP Date of Service: 12/05/20 Procedure(s): XR chest routine 2V Accession Number(s): [id number] cc: ANTONIO CASTILLO NP Fluoro Time In Minutes: CHEST 2 VIEWS INDICATION / CLINICAL INFORMATION: Chest Pain. COMPARISON: 11/15/20. FINDINGS: SUPPORT DEVICES: None. HEART / MEDIASTINUM: The heart size and pulmonary vasculature are normal. There is mild aortic tortuosity without aneurysm. LUNGS / PLEURA: No significant pulmonary or pleural abnormality. No pneumothorax. ADDITIONAL FINDINGS: No significant additional findings. IMPRESSION: No acute abnormality or significant change. Signer Name: Blake Nunez MD Signed: 12/05/2020 12:20 PM Workstation Name: [id number] Transcribed By: RT Dictated By: Blake Nunez MD Electronically Authenticated By: Blake Nunez MD Signed Date/Time: 12/05/20 1220 DD/ 1219 TD/TT: - Medical Decision Making This is a 50-year-old female that presents with headache, orthatic dizziness, and weakness. Patient is stable and was examined by me. Patient is neurologically stable. There is no stiff neck or neck pain. Vital signs are stable. Patient is afebrile. Patient is notified of the lab results and imaging results with no questions noted by the patient. Patient received treatment with 2 L of normal saline which the patient stated that headache has subsided and resolved. Patient was instructed not to operate any machinery after discharged due to drowsiness of Benadryl. Patient stated that a family member will drive patient home. Patient was referred to Follow-up with a primary care doctor in 3-5 days or if symptoms worsen and continue return to emergency room as soon as possible. At time of discharge, the patient does not seem toxic or ill in appearance. No acute signs of distress noted. Patient agrees to discharge treatment plan of care. No further questions noted by the patient. Critical care attestation.: If time is entered above; I have spent that time in minutes in the direct care of this critically ill patient, excluding procedure time. ED Disposition Clinical Impression: Orthostatic dizziness, Generalized weakness, Dehydration Headache Qualifiers: Headache type: unspecified Headache chronicity pattern: episodic headache Intractability: not intractable Qualified Code(s): R51.9 - Headache, unspecified Disposition: DC- TO HOME OR SELFCARE Is pt being admited?: No Does the pt Need Aspirin: No Condition: Stable Instructions: Weakness, Bimw-ha-Jegt, Dehydration, Adult, Lxja-cc-Moin, Dizziness, Moai-zw-Cgch Additional Instructions: Follow-up with a primary care doctor in 3-5 days or if symptoms worsen and continue return to emergency room as soon as possible. Prescriptions: Butalb/Acetaminophen/Caffeine [Fioricet 50-300-40 mg CAP] 1 cap PO Q8HR PRN #12 cap PRN Reason: Headache Referrals: PRIMARY CAREMD [Primary Care Provider] - 3-5 Days KENNA KIM MD [Staff Physician] - 3-5 Days Time of Disposition: 15:24
[2020-12-05 10:57] LABS: Basophils % (Auto) 0.4 % (0.0-1.8); Eosinophils # (Auto) 0.1 K/mm3 (0.0-0.4); Eosinophils % (Auto) 1.2 % (0.0-4.3); Hemoglobin 11.9 gm/dl (10.1-14.3); Lymphocytes # (Auto) 0.9 K/mm3 (1.2-5.4); Lymphocytes % (Auto) 8.4 % (13.4-35.0); Mean Corpuscular HGB Conc 34 % (30-34); Mean Corpuscular Volume 84 fl (79-97); Monocytes # (Auto) 0.5 K/mm3 (0.0-0.8); Monocytes % (Auto) 4.5 % (0.0-7.3); Platelet Count 230 K/mm3 (140-440); Red Blood Count 4.14 M/mm3 (3.65-5.03); Red Cell Distribution Width 16.7 % (13.2-15.2)
--- NOTE | 2020-12-05 11:15 | Cat Scan Report ---
CT HEAD WITHOUT CONTRAST INDICATION / CLINICAL INFORMATION: Headache. History of migraines. TECHNIQUE: All CT scans at this location are performed using CT dose reduction for ALARA by means of automated exposure control. COMPARISON: 11/15/20. FINDINGS: HEMORRHAGE: None. EXTRA-AXIAL SPACES: Normal in size and morphology for the patient's age. VENTRICULAR SYSTEM: Normal in size and morphology for the patient's age. CEREBRAL PARENCHYMA: No significant abnormality. No acute territorial infarct. MIDLINE SHIFT / HERNIATION: None. CEREBELLUM / BRAINSTEM: No significant abnormality. ORBITS: Normal as visualized. SOFT TISSUES: No significant abnormality. SKULL: No significant abnormality. PARANASAL SINUSES / MASTOID AIR CELLS: Normal as visualized. ADDITIONAL FINDINGS: None. IMPRESSION: No acute abnormality or significant change. Signer Name: Blake Nunez MD Signed: 12/05/2020 10:43 AM Workstation Name: [id number]
[2020-12-05 11:21] LABS: Albumin 3.4 g/dL (3.9-5); BUN/Creatinine Ratio 42; Blood Urea Nitrogen 38 mg/dL (7-17); Calcium 7.9 mg/dL (8.4-10.2); Hemolysis Index 929
--- NOTE | 2020-12-05 12:24 | XRay Report ---
CHEST 2 VIEWS INDICATION / CLINICAL INFORMATION: Chest Pain. COMPARISON: 11/15/20. FINDINGS: SUPPORT DEVICES: None. HEART / MEDIASTINUM: The heart size and pulmonary vasculature are normal. There is mild aortic tortuo sity without aneurysm. LUNGS / PLEURA: No significant pulmonary or pleural abnormality. No pneumothorax. ADDITIONAL FINDINGS: No significant additional findings. IMPRESSION: No acute abnormality or significant change. Signer Name: Blake Nunez MD Signed: 12/05/2020 12:20 PM Workstation Name: [id number]
[2020-12-05 12:33] LABS: Albumin 3.3 g/dL (3.9-5); BUN/Creatinine Ratio 48; Blood Urea Nitrogen 38 mg/dL (7-17); Calcium 7.9 mg/dL (8.4-10.2); Hemolysis Index 73
[2020-12-05 12:51] LABS: Alanine Aminotransferase < 5 units/L (7-56)
[2020-12-05 13:06] VITALS: BP 103/61
[2020-12-05] MEDS ORDERED: SODIUM CHLORIDE 0.9% 1000 ML 1,000 ML ONE (13:14)
[2020-12-05 13:53] LABS: Alanine Aminotransferase < 5 units/L (7-56)
[2020-12-05 14:26] LABS: Bilirubin,Urine NEG (Negative); Blood,Urine NEG (Negative); Color,Urine Straw (Yellow); Protein,Urine <15 mg/dL mg/dL (Negative); Urobilinogen,Urine < 2.0 mg/dL (<2.0)
--- NOTE | 2020-12-06 17:57 | Electrocardiograph Report ---
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
== END 2020-12-05 16:11 | disposition home or self-care (01) ==
LOC: ED 08:53
DX: R42 Dizziness and giddiness (principal); E86.0 Dehydration; R53.1 Weakness; R51.9 Headache, unspecified; E13.8 Other specified diabetes mellitus with unspecified complications; R56.9 Unspecified convulsions; M19.90 Unspecified osteoarthritis, unspecified site; F17.200 Nicotine dependence, unspecified, uncomplicated; Z88.2 Allergy status to sulfonamides
CPT/HCPCS: 36415; 70450; 71046; 80053; 81001; 83735; 84484; 85025; 93005; 96361; 96374; 96375; 99285; J1200; J2765; J7030